=== PATIENT | male | born 1980 | race African-American/Black ===

== ENCOUNTER 2019-12-04 06:57 | Emergency (ER) | payer OTHER ==
[~2019-12-04] VITALS: Ht 188 cm; Wt 63.5 kg
[~2019-12-04 06:57] MED LIST: DILANTIN 100 M100 MG PO; LISINOPRIL20 MG PO
[2019-12-04] MEDS ORDERED: NORVASC 2.5 MG2.5 M1 PO (07:02)
[2019-12-04] MEDS ORDERED: DEPAKOTE500 MG PO (07:03)
[2019-12-04] MEDS ORDERED: KEPPRA XR750 MG PO (07:03)
[2019-12-04 07:40] LABS: ABSOLUTE NEUTROPHILS 1.5 thou/uL (1.4-8.2); BASOPHILS 0.5 % (0.0-2.0); EOSINOPHILS 1.9 % (0.0-3.0); HEMATOCRIT 43.3 % (42.0-52.0); HEMOGLOBIN 14.1 gm/dL (14.0-18.0); LYMPHOCYTES 46.1 % (24.0-44.0); MCH 27.1 pg (26.0-34.0); MCHC 32.6 g/dL (28.0-37.0); MCV 83.2 fL (80.0-100.0); MONOCYTES 9.8 % (1.0-8.0); PLATELET COUNT 128 thou/uL (150-400); POLYS 41.7 % (36.0-66.0); RDW 13.4 % (10.5-14.5); WBC 3.7 thou/uL (4.0-11.0)
[2019-12-04 07:43] LABS: CALCIUM 9.3 mg/dL (8.5-10.1); CREATININE 1.1 mg/dL (0.7-1.3); POTASSIUM 3.6 mmol/L (3.5-5.1)
[2019-12-04 07:50] LABS: TOTAL BILIRUBIN 0.8 mg/dL (<0.1-1.0); TOTAL PROTEIN 7.8 g/dL (6.4-8.2)
[2019-12-04] MEDS ORDERED: ZOFRAN ODT4 MG PO (09:03)
[2019-12-04] MEDS ORDERED: DOXYCYCLINE 10100 MG PO (09:03)
[2019-12-04 09:25] VITALS: BP 141/90
== END 2019-12-04 09:25 | disposition home or self-care (01) ==
LOC: ER 06:57
PROVIDERS: Emergency Medicine
DX: R10.11 Right upper quadrant pain (principal); J18.9 Pneumonia, unspecified organism; I10 Essential (primary) hypertension; R56.9 Unspecified convulsions; F17.210 Nicotine dependence, cigarettes, uncomplicated

== ENCOUNTER 2020-09-09 11:36 | Emergency (ER) | payer OTHER ==
[~2020-09-09] VITALS: Ht 188 cm; Wt 63.5 kg
[~2020-09-09 11:36] MED LIST changes: +DEPAKOTE500 MG PO; +DOXYCYCLINE 10100 MG PO; +KEPPRA XR750 MG PO; +NORVASC 2.5 MG2.5 M1 PO; +ZOFRAN ODT4 MG PO
[2020-09-09] MEDS ORDERED: OMEPRAZOLE20 M2 PO (11:49)
[2020-09-09] MEDS ORDERED: OMEPRAZOLE 20 M20 M1 PO (11:49)
[2020-09-09] MEDS ORDERED: ZONISAMIDE 100100 M1 PO (11:49)
[2020-09-09] MEDS ORDERED: VENTOLIN HFA INH8 GM INH (11:50)
[2020-09-09 12:26] LABS: ABSOLUTE NEUTROPHILS 1.4 thou/uL (1.4-8.2); BASOPHILS 1.2 % (0.0-2.0); EOSINOPHILS 2.1 % (0.0-3.0); HEMATOCRIT 45.3 % (42.0-52.0); HEMOGLOBIN 15.1 gm/dL (14.0-18.0); LYMPHOCYTES 42.3 % (24.0-44.0); MCH 27.6 pg (26.0-34.0); MCHC 33.4 g/dL (28.0-37.0); MCV 82.5 fL (80.0-100.0); MONOCYTES 9.5 % (1.0-8.0); POLYS 44.9 % (36.0-66.0); RBC 5.49 mil/uL (4.50-6.00); RDW 13.8 % (10.5-14.5); WBC 3.1 thou/uL (4.0-11.0)
[2020-09-09 12:31] LABS: ANION GAP 10 mmol/L (7-16); BUN 21 mg/dL (7-18); CALCIUM 8.9 mg/dL (8.5-10.1); CHLORIDE 105 mmol/L (98-107); CO2 29 mmol/L (21-32); CREATININE 1.1 mg/dL (0.7-1.3); GLUCOSE 85 mg/dL (74-106); POTASSIUM 3.8 mmol/L (3.5-5.1); SODIUM 144 mmol/L (136-145)
[2020-09-09 12:42] LABS: ALBUMIN 3.9 g/dL (3.4-5.0); LIPASE 115 U/L (73-393); SGOT 26 U/L (15-37); SGPT 12 U/L (30-65); TOTAL BILIRUBIN 1.6 mg/dL (0.2-1.0); TOTAL PROTEIN 7.2 g/dL (6.4-8.2); TROPONIN-I <0.06 ng/mL (<0.06)
[2020-09-09 13:05] LABS: PLATELET COUNT 117 thou/uL (150-400)
[2020-09-09 13:06] LABS: LARGE PLATELETS RARE
[2020-09-09] MEDS ORDERED: TRAMADOL 50 MG50 MG PO (14:06)
[2020-09-09] MEDS ORDERED: PRILOSEC OTC20 MG PO (14:06)
[2020-09-09 14:25] LABS: URINE BILIRUBIN NEGATIVE (Negative); URINE BLOOD NEGATIVE (Negative); URINE CLARITY CLEAR; URINE COLOR YELLOW; URINE GLUCOSE-RANDOM* NEGATIVE (Negative); URINE KETONES 1+ (Negative); URINE LEUKOCYTES-REFLEX NEGATIVE (Negative); URINE NITRITE-REFLEX NEGATIVE (Negative); URINE PROTEIN (DIPSTICK) NEGATIVE (Negative); URINE SPECIFIC GRAVITY 1.025 (1.005-1.035); URINE UROBILINOGEN 0.2 E.U./dl (0.2-1.0)
--- NOTE | 2020-09-09 15:35 | EKG ---
[facility] [address] ELECTROCARDIOGRAM REPORT Name: OG CRAIN Room #: REG [facility]#: [id number] Admission: 09/09/20 Attend Phys: Discharge: Date of : 82 Report #: [id number] THIS REPORT FOR: cc: PATSY - Samina family physician/PCP PATSY - Samina family physician/PCP Santy Perry MD [facility] ~ THIS REPORT FOR: //name// [facility] ED Test Date: 2020-09-09 Test Time: 12:35:16 Pat Name: OG CRAIN Department: Room: Gender: Inventory Assistant: [facility] : 1980 Requested By: Julian Pastor Order Number: [id number] MD: Santy Perry Measurements Intervals [place] Rate: 68 P: 63 LA: 127 QRS: 74 QRSD: 80 T: 63 QT: 423 QTc: 450 Interpretive Statements Sinus rhythm Consider left ventricular hypertrophy J Point elev, probable normal early repol pattern No previous ECG available for comparison Electronically Signed On 09-09-2020 15:35:49 CDT by Santy Perry [email or web address] <ELECTRONICALLY SIGNED> By: Santy Perry MD, FACC 09/09/20 1535 1235 1235 Santy Perry MD, FACC /EPI
[2020-09-09] MEDS ORDERED: MIRALAX119 GM PO (15:45)
[2020-09-09 16:04] VITALS: BP 122/81
== END 2020-09-09 16:06 | disposition home or self-care (01) ==
LOC: ER 11:36
PROVIDERS: Emergency Medicine
DX: K80.80 Other cholelithiasis without obstruction (principal); K59.00 Constipation, unspecified; R11.0 Nausea; I10 Essential (primary) hypertension; K21.9 Gastro-esophageal reflux disease without esophagitis; F17.210 Nicotine dependence, cigarettes, uncomplicated; Z79.899 Other long term (current) drug therapy; Z20.828 Contact with and (suspected) exposure to other viral communicable diseases